=== PATIENT | female | born 1960 | race Caucasian/White ===

== ENCOUNTER 2016-05-16 10:41 | Emergency (ER) | payer BC ==
--- NOTE | 2016-05-16 11:43 | EDM.PDOC ---
ED HPI Allergic Reaction - General Chief Complaint: Allergic Reaction Stated Complaint: ALLERGIC RX Time Seen by Provider: 05/16/16 10:57 Source of Information: Reports: Patient History Limitations: Reports: No limitations - History of Present Illness INITIAL COMMENTS - FREE TEXT/NARRATIVE: Patient presents for evaluation and treatment of swelling to her lips. Patient reports that the swelling first started on Saturday. She reports associated symptoms of burning, itching and swelling to her lips. She also reports they're more erythematous than normal. She was started on doxycycline on Saturday for a sinus infection; she feels this is likely causing her symptoms. She states that she did not take her last 2 doses of doxycycline. She did take 2 hydroxyzine about an hour before arriving in the ER. Swelling has since significantly improved. She has also been utilizing vaseline for the discomfort. Patient has multiple allergies to antibiotics and feels this is what is causing her symptoms. She denies any shortness of breath, chest pain, throat swelling. She also reports some weakness. Patient reports her sinus symptoms have significantly improved since Saturday. - Related Data Allergies/ADRs: Allergies Allergy/AdvReac Type Severity Reaction Status Date / Time amoxicillin Allergy Rash Verified 05/16/16 10:57 clindamycin Allergy Rash Verified 05/16/16 10:57 Penicillins Allergy Rash Verified 05/16/16 10:57 Sulfa (Sulfonamide Allergy Rash Verified 05/16/16 10:57 Antibiotics) Home Meds: Home Meds Citalopram Hydrobromide [Celexa] 40 mg PO DAILY 03/03/16 [History] ClonazePAM [KlonoPIN] 2 mg PO BID 03/03/16 [History] Cyclobenzaprine [Flexeril] 10 mg PO DAILY PRN 03/03/16 [History] Gabapentin [Neurontin] 800 mg PO DAILY PRN 03/03/16 [History] Levothyroxine [Synthroid] 50 mcg PO ACBREAKFAST 03/03/16 [History] Naproxen 500 mg PO Q12H #20 tablet 03/03/16 [Rx] Anastrozole [Arimidex] 1 mg PO DAILY 05/16/16 [History] Doxycycline [Vibramycin] 1 tab PO BID 05/16/16 [History] Gentamicin [Gentak 0.3% Ophth Oint] 1 drop EYEBOTH DAILY 05/16/16 [History] Mirtazapine 15 mg PO DAILY 05/16/16 [History] Telmisartan 80 mg PO DAILY 05/16/16 [History] metFORMIN [Glucophage] 500 mg PO DAILY 05/16/16 [History] Past Medical History Cardiovascular History: Reports: Hypertension Musculoskeletal History: Reports: Fibromyalgia Psychiatric History: Reports: Anxiety, Depression, Panic attack Endocrine/Metabolic History: Reports: Diabetes, type II, Hypothyroidism - Past Surgical History HEENT Surgical History: Reports: Oral surgery, Tonsillectomy Female Surgical History: Reports: Tubal ligation Social & Family History - Family History Family Medical History: Noncontributory - Tobacco Use Smoking Status *Q: Never Smoker - Caffeine Use Caffeine Use: Reports: Coffee - Recreational Drug Use Recreational Drug Use: No - Living Situation & Occupation Living situation: Reports: (), alone Occupation: unemployed ED ROS ALLERGIC REACTION - Review of Systems Review Of Systems: See Below HEENT: Reports: Other (lips are swollen, erythematous, burning and itchy). Denies: Throat pain, Throat swelling Respiratory: Denies: shortness of breath Cardiovascular: Denies: Chest pain Skin: Denies: rash ED EXAM GENERAL NO PERIP PULSE - Physical Exam Exam: See Below Exam Limited By: No limitations General Appearance: alert, WD/WN, no apparent distress Throat/Mouth: Normal inspection, Normal oropharynx, Normal voice, No airway compromise, Other (no swelling to the lips appreciated; lips are bright pink and dry; no swelling to the tongue) Neck: supple, non-tender Respiratory/Chest: no respiratory distress, lungs clear, normal breath sounds Cardiovascular: normal peripheral pulses, regular rate, rhythm, no murmur Neurological: alert, oriented, normal cognition Psychiatric: anxious Skin Exam: Warm, Dry, Normal color Course - Vital Signs Last Recorded V/S: Last Vital Signs Temp 36.0 C 05/16/16 10:49 Pulse 97 05/16/16 10:49 Resp 16 05/16/16 10:49 BP 110/90 05/16/16 10:49 Pulse Ox 97 05/16/16 10:49 - Re-Assessments/Exams Free Text/Narrative Re-Assessment/Exam: 05/16/16 12:00 Prescription list acquired from [place] [facility]. Patient is on an ARB. Discussed case with Dr. Wong. Unlikely angioedema from ARB. [place] allergic reaction to doxycycline was unlikely given she does not have any hives or other skin findings. Recommend no change to current medication plan. Discussed with patient. She is currently resting comfortably. No concerns. Will discharge home at this time. Discharge instructions as documented. Departure - Departure Time of Disposition: 12:05 Disposition: Home, Self-Care 01 Condition: good Clinical Impression: Swelling of both lips Referrals: Julisa Boswell MD [Primary Care Provider] - Forms: ED Department Discharge Additional Instructions: Recommend taking an antihistamine such as Claritin, Zyrtec, Benadryl or hydroxyzine daily for the next week. May stop the doxycycline if you choose to. Follow up with your primary care provider as needed. Please return to the ER should your symptoms change or worsen.
== END 2016-05-16 12:23 | disposition home or self-care (01) ==
LOC: JD.ED 10:41
CPT/HCPCS: 99282; 99283

== ENCOUNTER 2017-04-26 20:28 | Emergency (ER) | payer SELFPAY ==
[~2017-04-26 20:28] MED LIST: Morphine 4 MG/ML Syringe ONE; Nitroglycerin 0.4 MG Tab.SL ONE
[2017-04-26] MEDS ORDERED: Tenecteplase 50 MG Kit IV ONE (20:32)
[2017-04-26] MEDS ORDERED: Sodium Chloride 0.9% 1,000 ML IV SCH ×4 (20:34→21:23)
[2017-04-26 20:47] VITALS: BP 124/78
[2017-04-26] MEDS ORDERED: Heparin Sodium 5,000 Units/ML Vial IVPUSH ONE (20:49)
[2017-04-26] MEDS ORDERED: Clopidogrel 75 MG Tab PO ONE (20:49)
--- NOTE | 2017-04-26 20:49 | EDM.PDOC ---
ED HPI GENERAL MEDICAL PROBLEM - General Chief Complaint: Chest Pain Stated Complaint: [facility] Time Seen by Provider: 04/26/17 20:28 Source of Information: Reports: Patient, EMS History Limitations: Reports: No Limitations - History of Present Illness INITIAL COMMENTS - FREE TEXT/NARRATIVE: This is a 56-year-old female. Tonight around 7 PM she ran down the steps of her apartment to her car to get something and then ran back up when she got to the top of the steps she became sweaty and shortness of breath and she developed left-sided chest pain that ran down her left arm. She called the ambulance shortly thereafter and she was brought to the ER approximately 8:28 PM. A EKG was done at the scene and during transport that showed an acute STEMI inferior lateral. Her pain initially was about a 5 out of 10 at home they gave her a single nitroglycerin and the chest pain drop down to a 3.5 out of 10. By the time she arrived here it was a 2 out of 10. She was somewhat pale but not diaphoretic not short of breath. Pulse ox on 2 L was 98%. We initiated the STEMI protocol and provided the aspirin 324 mg. I spoke to her regarding any contraindications to fibrinolysis and there were no contraindications. She was therefore given 50 mg of TNKase IV. She also received 300 mg of Plavix a 4000 unit bolus of heparin and placed on a heparin drip at 12 units per kilogram per hour. After receiving the TNKase she was noted to have her heart rate began to drop and her blood pressure dropped. We have given her a fluid bolus for a total of about 2.5 L prior to leaving the ER to go to [place]. I did speak to Dr. Little at [facility] who agrees to accept her in transport. While she was here her blood pressure remained in the 60s and 70s and heart rate dropped down to the 40s we started on a dopamine drip also gave her a total of 2 A of atropine. Her heart rate thereafter went up into the 130s 140s we stopped the dopamine drip as it didn't seem to help the blood pressure who despite the increased rate remained in the 70s and 80s. We stopped the dopamine drip and then we put her on a Levophed drip that started to bring her blood pressure up to systolic 95 and he continued to rise slowly. Her heart rate stays about 120. I felt she was stable enough at that time to load onto the ambulance to transfer down to [facility]. She was awake talking alert and oriented her pain was about 2/10 upon leaving the ER here in [place]. She is on a leave a Levophed drip at 5 mics with a normal saline drip at 100 mL an hour. The ambulance crew orders to titrate the levophed drip and give fluid bolus as needed for low blood pressure. When she left the ER here in [place] her EKG showed a normalization of the lateral leads and a much better normalization of the inferior leads compared to her initial EKG. I would encourage her look at the series of EKGs that are scanned into her chart for the changes noted. I would encourage you to look at the nursing notes on the time frame for the various medications and fluid boluses as well as vital signs and heart rate. - Related Data Allergies Allergy/AdvReac Type Severity Reaction Status Date / Time amoxicillin Allergy Rash Verified 04/26/17 20:41 clindamycin Allergy Rash Verified 04/26/17 20:41 Penicillins Allergy Rash Verified 04/26/17 20:41 Sulfa (Sulfonamide Allergy Rash Verified 04/26/17 20:41 Antibiotics) Home Meds: Home Meds Citalopram Hydrobromide [Celexa] 40 mg PO DAILY 03/03/16 [History] ClonazePAM [KlonoPIN] 2 mg PO BID 03/03/16 [History] Cyclobenzaprine [Flexeril] 10 mg PO DAILY PRN 03/03/16 [History] Gabapentin [Neurontin] 800 mg PO DAILY PRN 03/03/16 [History] Levothyroxine [Synthroid] 50 mcg PO ACBREAKFAST 03/03/16 [History] Naproxen 500 mg PO Q12H #20 tablet 03/03/16 [Rx] Anastrozole [Arimidex] 1 mg PO DAILY 05/16/16 [History] Doxycycline [Vibramycin] 1 tab PO BID 05/16/16 [History] Gentamicin [Gentak 0.3% Ophth Oint] 1 drop EYEBOTH DAILY 05/16/16 [History] Mirtazapine 15 mg PO DAILY 05/16/16 [History] Telmisartan 80 mg PO DAILY 05/16/16 [History] metFORMIN [Glucophage] 500 mg PO DAILY 05/16/16 [History] Past Medical History Cardiovascular History: Reports: Hypertension Musculoskeletal History: Reports: Fibromyalgia Psychiatric History: Reports: Anxiety, Depression, Panic Attack Endocrine/Metabolic History: Reports: Diabetes, Type II, Hypothyroidism - Past Surgical History HEENT Surgical History: Reports: Oral Surgery, Tonsillectomy Female Surgical History: Reports: Tubal Ligation Social & Family History - Family History Family Medical History: Noncontributory - Tobacco Use Smoking Status *Q: Never Smoker - Caffeine Use Caffeine Use: Reports: Coffee - Recreational Drug Use Recreational Drug Use: No - Living Situation & Occupation Living situation: Reports: , Alone Occupation: Unemployed ED ROS GENERAL - Review of Systems Review Of Systems: See Below Constitutional: Denies: Fever, Chills HEENT: Reports: No Symptoms Respiratory: Reports: Shortness of Breath. Denies: Cough Cardiovascular: Reports: Chest Pain, Lightheadedness Endocrine: Reports: No Symptoms GI/Abdominal: Reports: No Symptoms. Denies: Nausea, Vomiting : Reports: No Symptoms Musculoskeletal: Reports: No Symptoms Skin: Reports: No Symptoms Neurological: Reports: No Symptoms Psychiatric: Reports: Anxiety Hematologic/Lymphatic: Reports: No Symptoms ED EXAM, GENERAL - Physical Exam Exam: See Below Exam Limited By: No Limitations General Appearance: Alert, WD/WN, Mild Distress, Other (She is pale but not diaphoretic) Eye Exam: Bilateral Eye: Normal Inspection Ears: Normal External Exam, Normal Canal, Normal TMs Nose: Normal Inspection Throat/Mouth: Normal Inspection, Normal Lips, Normal Voice, No Airway Compromise Head: Normocephalic Neck: Supple Respiratory/Chest: No Respiratory Distress, Lungs Clear, Normal Breath Sounds Cardiovascular: Regular Rate, Rhythm, No Edema, No Murmur, No Rub GI/Abdominal: Soft Back Exam: Full Range of Motion Extremities: Normal Inspection, Normal Range of Motion, No Pedal Edema Neurological: Alert, Oriented Psychiatric: Anxious Skin Exam: Dry, Cool. No: Cyanosis EKG INTERPRETATION EKG Interpretation Comments: Please see the series of EKGs that have been scanned into the patient's chart during her stay in the ER Course - Re-Assessments/Exams Free Text/Narrative Re-Assessment/Exam: 04/26/17 21:51 Please see the nurse's notes for events regarding her blood pressure and pulse as well as the various drips and fluid boluses that we provided while she was here in the ER before going to [facility]. Departure - Departure Time of Disposition: 21:38 Disposition: DC/Tfer to Acute Hospital 02 Reason for Transfer *Q: Primary PCI Indicated Condition: Serious Clinical Impression: Inferior and lateral ST segment elevation, Tachycardia, Fibrinolysis ST elevation (STEMI) myocardial infarction Qualifiers: Involved coronary artery: unspecified coronary artery Qualified Code(s): I21.3 - ST elevation (STEMI) myocardial infarction of unspecified site Hypotension Qualifiers: Hypotension type: unspecified hypotension type Qualified Code(s): I95.9 - Hypotension, unspecified Forms: ED Department Discharge Additional Instructions: Patient was transported by [facility] ambulance to [facility] to the ER with Dr. Little as the accepting physician ED Communication - ED Communication Date/Time Date: 04/26/17 Time Called: 21:54 - Discussed Case With (1) Discussed Case With (1): Admitting Provider Person/s Notified (1): Ck Little (He accepts the patient in transport to [facility])
[2017-04-26] MEDS ORDERED: Atropine 0.1 MG/ML 10 ML Syringe IVPUSH ONE ×3 (20:50→21:09)
[2017-04-26] MEDS ORDERED: Atropine 0.4 MG/ML SDV IVPUSH ONE ×3 (20:50→21:09)
[2017-04-26] MEDS ORDERED: Sodium Chloride 0.9% 1,000 ML ONE ×2 (20:52→21:11)
[2017-04-26] MEDS ORDERED: Heparin Sodium 5,000 Units/ML Vial ONE (20:56)
[2017-04-26] MEDS ORDERED: Heparin Sodium/D5W 500 ML ONE (20:56)
[2017-04-26] MEDS ORDERED: Heparin Sodium/D5W 25,000 UNITS/500 ML BAG IV SCH (21:00)
[2017-04-26] MEDS ORDERED: Morphine 2 MG/ML Syringe IVPUSH ONE (21:54)
[2017-04-26] MEDS ORDERED: Norepinephrine 4 MG in Dextrose 5% in Water 246 ML IV SCH ×2 (22:00)
[2017-04-26] MEDS ORDERED: DOPamine/Dextrose 5%-Water 400 MG/250 ML BAG IV SCH (22:00)
--- NOTE | 2017-04-28 17:47 | CR ---
Chest: Portable view of the chest was obtained. Comparison: No prior chest x-ray. Heart size and mediastinum are within normal limits for portable technique. Lungs are clear. Bony structures are grossly intact. Impression: 1. Nothing acute is identified on portable chest x-ray. Diagnostic code #1
== END 2017-04-26 21:38 ==
LOC: JD.ED 20:28
DX: I21.19 ST elevation (STEMI) myocardial infarction involving other coronary artery of inferior wall (principal); D65 Disseminated intravascular coagulation [defibrination syndrome]; I95.9 Hypotension, unspecified; I10 Essential (primary) hypertension; F32.9 Major depressive disorder, single episode, unspecified; E11.9 Type 2 diabetes mellitus without complications; E03.9 Hypothyroidism, unspecified; Z79.84 Long term (current) use of oral hypoglycemic drugs; Z79.899 Other long term (current) drug therapy; Z88.0 Allergy status to penicillin; Z88.1 Allergy status to other antibiotic agents; Z88.2 Allergy status to sulfonamides
CPT/HCPCS: 36415; 71045; 71045-26; 80053; 82553; 84484; 85025; 85610; 85730; 86140; 93005; 96365; 96367; 96375; 99291; A9270-GY; J0461; J1265; J1644; J2270; J3101; J7040; J7060